=== PATIENT | female | born 1960 | race Two or more races ===

== ENCOUNTER 2019-08-05 13:28 | Inpatient (IN) | payer MEDICARE, MEDICAID ==
[~2019-08-05] VITALS: Ht 165.1 cm; Wt 56.7 kg
[2019-08-05] MEDS ORDERED: OMEGA 3 1,0001 EACH PO (13:33)
[2019-08-05] MEDS ORDERED: MULTIVITAMINS1 EAC2 ORAL (13:33)
[2019-08-05] MEDS ORDERED: LIPITOR20 MG ORAL (13:37)
[2019-08-05] MEDS ORDERED: ZYPREXA5 MG ORAL (13:37)
[2019-08-05] MEDS ORDERED: LEXAPRO10 MG ORAL (13:37)
[2019-08-05] MEDS ORDERED: RISPERDAL2 MG ORAL (13:37)
[2019-08-05] MEDS ORDERED: FAMOTIDINE20 MG ORAL (13:37)
[2019-08-05] MEDS ORDERED: COLACE100 MG ORAL (13:37)
[2019-08-05] MEDS ORDERED: Omnipaque-300 100ml vial INJ PRN (13:45)
--- NOTE | 2019-08-05 14:00 | NUR ---
ED Nurse Note:pt. was BIBA from SNF with coffee ground emesis this morning, pt. is A/Ox3 ambulatory with assist, skin is intact, blood was sent to labs and IV meds and fluids given
[2019-08-05 14:02] VITALS: BP 123/69
[2019-08-05 14:28] LABS: ANION GAP 7 mmol/L (5-15); BLOOD UREA NITROGEN 9 mg/dL (7-18); CALCIUM 9.1 MG/DL (8.5-10.1); CARBON DIOXIDE 30 MMOL/L (21-32); CHLORIDE 104 MMOL/L (98-107); CREATININE 0.6 MG/DL (0.55-1.30); POTASSIUM 3.7 MMOL/L (3.5-5.1); SODIUM 141 MMOL/L (136-145)
[2019-08-05 14:32] LABS: ALANINE AMINOTRANSFERASE 19 U/L (12-78); ALBUMIN 3.6 G/DL (3.4-5.0); ALBUMIN/GLOBULIN RATIO 0.9 (1.0-2.7); ALKALINE PHOSPHATASE 78 U/L (46-116); ASPARTATE AMINO TRANSFERASE 19 U/L (15-37); BILIRUBIN,TOTAL 0.3 MG/DL (0.2-1.0)
[2019-08-05 14:33] LABS: BASOPHILS % (AUTO) 0.5 % (0.0-2.0); EOSINOPHILS % (AUTO) 0.2 % (0.0-3.0); HEMATOCRIT 45.2 % (37.0-47.0); HEMOGLOBIN 14.5 G/DL (12.0-16.0); LYMPHOCYTES % (AUTO) 25.1 % (20.0-45.0); MEAN CORPUSCULAR VOLUME 98 FL (80-99); MONOCYTES % (AUTO) 6.2 % (1.0-10.0); NEUTROPHILS % (AUTO) 67.9 % (45.0-75.0); PLATELET COUNT 347 K/UL (150-450); RED BLOOD COUNT 4.64 M/UL (4.20-5.40); RED CELL DISTRIBUTION WIDTH 12.4 % (11.6-14.8)
--- NOTE | 2019-08-05 14:36 | Diagnostic Imaging Report ---
Procedure: XRAY Chest 1v Reason for study: Chest pain. Comparison films: None. FINDINGS: A single one view chest is obtained. Vascularity is normal. The lung greene are clear bilaterally. Cardiac and mediastinal silhouette are within normal limits. CP angles are sharp. The bony thorax appear unremarkable. IMPRESSION: NO ACUTE CARDIOPULMONARY DISEASE.
--- NOTE | 2019-08-05 14:38 | Emergency Room Report ---
History of Present Illness General Chief Complaint: Gastrointestinal Bleed Source: Patient, EMS Present Illness HPI Patient is set from a long-term facility for allegedly vomiting up coffee grounds this morning. She does admit that she did vomit but denies any abdominal pain or nausea at this time. She is been moving her bowels without difficulty and denies melena, hematochezia. Patient has a history of GERD. She states her stools have been normal color. Patient has a history of COPD. History of schizophrenia and depression. No fevers, chills, sore throat, chest pain, palpitations, diarrhea, dysuria, abdominal pain, shortness of breath, joint pain, rashes, depression, anxiety, visual changes, dizziness, headache. 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 COVID-19 Screening: Negative COVID-19 COVID-19 Testing Source: 06/25 Patient History Past Medical History: see triage record Social History: Denies: smoking, alcohol use, drug use Social History Narrative Born in [place], from [facility] Reviewed Nursing Documentation: PMH: Agreed; PSxH: Agreed Nursing Documentation-PMH Past Medical History: No History, Except For Hx COPD: Yes Hx Gastrointestinal Problems: Yes - GERD History Of Psychiatric Problem: Yes - major depressive disorder, schizoaffective disorder Review of Systems All Other Systems: negative except mentioned in HPI Physical Exam Vital Signs Date Time Temp Pulse Resp B/P (MAP) Pulse Ox O2 Delivery O2 Flow Rate FiO2 08/05/19 13:24 98.8 76 18 123/69 (87) 94 Room Air Sp02 EP Interpretation: reviewed, abnormal - Interpreted as slightly low by me General Appearance: well appearing, no apparent distress, GCS 15, non-toxic Head: normocephalic Eyes: bilateral eye normal inspection, bilateral eye PERRL, bilateral eye EOMI ENT: moist mucus membranes Neck: supple Respiratory: normal inspection Cardiovascular #1: regular rate, rhythm, no edema Cardiovascular #2: 2+ radial (R) Gastrointestinal: normal inspection, normal bowel sounds, non tender, no mass, non-distended, scaphoid Genitourinary: no CVA tenderness Musculoskeletal: back normal, normal range of motion, gait/station normal Neurologic: alert, oriented x3, grossly normal Psychiatric: mood/affect normal Skin: no rash, warm/dry Medical Decision Making Diagnostic Impression: Primary Impression: Upper gastrointestinal bleed ER Course Patient sent in with history of coffee-ground emesis this morning. She denies symptoms at this time. Differential includes GERD, Alana-Hanks tear, gastritis, peptic ulcer disease amongst others. Evaluation with EKG, chest x- ray and labs. Patient is placed on a night monitor and will receive IV hydration and Pepcid. EKG without injury. Chest x-ray suggestive of COPD no infiltrates. Labs significant for normal hemoglobin and hematocrit. CMP and lipase normal. Urinalysis clear. No evidence of any continued vomiting. Patient in no distress and abdomen is benign. However the patient needs to have upper endoscopy urgently as there is a history of significant vomiting of coffee grounds and blood. Patient admitted to the hospital for further observation and evaluation. Laboratory Tests Test 08/05/19 14:00 08/05/19 15:00 White Blood Count 10.0 K/UL (4.8-10.8) Red Blood Count 4.64 M/UL (4.20-5.40) Hemoglobin 14.5 G/DL (12.0-16.0) Hematocrit 45.2 % (37.0-47.0) Mean Corpuscular Volume 98 FL (80-99) Mean Corpuscular Hemoglobin 31.2 PG (27.0-31.0) H Mean Corpuscular Hemoglobin Concent 32.0 G/DL (32.0-36.0) Red Cell Distribution Width 12.4 % (11.6-14.8) Platelet Count 347 K/UL (150-450) Mean Platelet Volume 6.3 FL (6.5-10.1) L Neutrophils (%) (Auto) 67.9 % (45.0-75.0) Lymphocytes (%) (Auto) 25.1 % (20.0-45.0) Monocytes (%) (Auto) 6.2 % (1.0-10.0) Eosinophils (%) (Auto) 0.2 % (0.0-3.0) Basophils (%) (Auto) 0.5 % (0.0-2.0) Prothrombin Time 10.8 SEC (9.30-11.50) Prothrombin Time INR 1.0 (0.9-1.1) Activated Partial Thromboplast Time 29 SEC (23-33) Sodium Level 141 MMOL/L (136-145) Potassium Level 3.7 MMOL/L (3.5-5.1) Chloride Level 104 MMOL/L (98-107) Carbon Dioxide Level 30 MMOL/L (21-32) Anion Gap 7 mmol/L (5-15) Blood Urea Nitrogen 9 mg/dL (7-18) Creatinine 0.6 MG/DL (0.55-1.30) Estimated Glomerular Filtration Rate > 60 mL/min (>60) Glucose Level 96 MG/DL (74-106) Lactic Acid Level 0.90 mmol/L (0.4-2.0) Calcium Level 9.1 MG/DL (8.5-10.1) Total Bilirubin 0.3 MG/DL (0.2-1.0) Aspartate Amino Transferase (AST) 19 U/L (15-37) Alanine Aminotransferase (ALT) 19 U/L (12-78) Alkaline Phosphatase 78 U/L (46-116) Troponin I 0.000 ng/mL (0.000-0.056) Total Protein 7.5 G/DL (6.4-8.2) Albumin 3.6 G/DL (3.4-5.0) Globulin 3.9 g/dL Albumin/Globulin Ratio 0.9 (1.0-2.7) L Lipase 196 U/L (73-393) Urine Color Pale yellow Urine Appearance Clear Urine pH 6.5 (4.5-8.0) Urine Specific [place] 1.005 (1.005-1.035) Urine Protein Negative (NEGATIVE) Urine Glucose (UA) Negative (NEGATIVE) Urine Ketones Negative (NEGATIVE) Urine Blood Negative (NEGATIVE) Urine Nitrite Negative (NEGATIVE) Urine Bilirubin Negative (NEGATIVE) Urine Urobilinogen Normal MG/DL (0.0-1.0) Urine Leukocyte Esterase 1+ (NEGATIVE) H Urine RBC 0-2 /HPF (0 - 2) Urine WBC 0-2 /HPF (0 - 2) Urine Squamous Epithelial Cells Occasional /LPF Urine Bacteria Occasional /HPF (NONE) EKG Diagnostic Results Rate: normal Rhythm: NSR ST Segments: no acute changes Rhythm Strip Diag. Results EP Interpretation: yes Rhythm: NSR, no PVC's, no ectopy Chest X-Ray Diagnostic Results Chest X-Ray Diagnostic Results : Chest X-Ray Ordered: Yes # of Views/Limited/Complete: 1 View Indication: Other EP Interpretation: Yes Interpretation: no consolidation, no effusion, no pneumothorax Impression: No acute disease Electronically Signed by: Electronically signed by Breezy Grimes MD Last Vital Signs Date Time Temp Pulse Resp B/P (MAP) Pulse Ox O2 Delivery O2 Flow Rate FiO2 08/05/19 14:02 98.8 76 18 123/69 96 Room Air Status: unchanged Disposition: ADMITTED INPATIENT Condition: Serious Referrals: Luis Alberto Muñoz DO (PCP) Breezy Grimes MD Aug 05, 2019 14:38
[2019-08-05 15:37] VITALS: BP 125/70
--- NOTE | 2019-08-05 15:49 | NUR ---
ED Nurse Note:called [address] with report given to Xenia RIOS
--- NOTE | 2019-08-05 15:51 | Diagnostic Imaging Report ---
EXAM: CT CT Abdomen Pelvis w/Contrast INDICATION: Reason For Exam: ABD PAIN. Coffee-ground emesis. COMPARISON: None TECHNIQUE: Axial images were obtained through the abdomen pelvis with intravenous contrast. Sagittal and coronal reformats are generated. All CT scans at this facility are performed using dose modulation techniques as appropriate to a performed exam including the following: automated exposure control with adjustment of the mA and/or kV according to patient size. RADIATION DOSE: CTDIvol: 3.7 mGy DLP: 185.9 mGy-cm Dose information generated by the CT scanner is available in PACS. FINDINGS: Mild atelectatic changes noted in the lung bases. The liver and spleen are homogeneous. Gallbladder is without sludge or stone and there is no wall thickening. The pancreas is unremarkable. Adrenals are normal in morphology. There are small cysts bilaterally. Small bowel loops are nondistended. Qcav-ed-gsxasala increased stool lucencies noted in the colon. The appendix is normal. There is no free fluid or free air. No pathologic adenopathy demonstrated. Urinary bladder appears unremarkable. Uterus is midline. No acute bony abnormality seen. IMPRESSION: NO SIGN OF ACUTE DISEASE IN THE ABDOMEN AND PELVIS. MILD TO MODERATE INCREASED STOOL LUCENCIES IN THE COLON. SMALL RENAL CYSTS.
[2019-08-05 16:14] LABS: APPEARANCE,URINE CLEAR; BILIRUBIN, URINE NEGATIVE (NEGATIVE); COLOR,URINE PALE YELLOW; GLUCOSE, URINE (UA) NEGATIVE (NEGATIVE); KETONES,URINE NEGATIVE (NEGATIVE); LEUKOCYTE ESTERASE ,URINE 1+ (NEGATIVE); NITRITE,URINE NEGATIVE (NEGATIVE); PH,URINE 6.5 (4.5-8.0); PROTEIN,URINE NEGATIVE (NEGATIVE); UROBILINOGEN,URINE NORMAL MG/DL (0.0-1.0)
[2019-08-05 16:30] VITALS: BP 124/65
--- NOTE | 2019-08-05 16:30 | NUR ---
NURSE NOTES: Patient arrived on unit via wheelchair. Assisted to bed by staff. Patient is oriented to name and birthday, unable to answer where she is or why she is at the hospital. Skin is c/d/i. Patient oriented to room, call light, and unit. Patient keeps asking to smoke, patient made aware of no smoking policy, reinforcement needed. No c/o abdominal pain, n/v/d. Patient is stable. No visible signs of distress noted. Patient wanders around room and hallway without mask, needs reinforcement to stay in room for safety. All needs met at this time. WIll continue to monitor.
[2019-08-05] MEDS ORDERED: Acetaminophen 500mg (ES) tab ORAL PRN (17:15)
--- NOTE | 2019-08-05 18:00 | NUR ---
NURSE NOTES: Spoke to Dr. Kennedy per Dr. Holley regarding psych meds. New orders to continue psych meds from SNF read back and entered.
--- NOTE | 2019-08-05 18:52 | NUR ---
NURSE NOTES: no n/v/d during shift. No c/o abdominal discomfort. stable.
--- NOTE | 2019-08-05 19:27 | NUR ---
HAND-OFF: Report given to Anders RIOS. Patient is stable.
--- NOTE | 2019-08-05 19:28 | NUR ---
NURSE NOTES: Received pt awake,a&o x4 ,and verbal. pt has no sob,fever,cough and pain. pt is ambulatory. pt is NPO except ice chips and meds. Bed in the lower position,locked and call light within reach. We will keep monitoring the pt.
[2019-08-05 20:00] VITALS: BP 113/67
[2019-08-05] MEDS: TraZODone 50mg tab ORAL SCH (20:42)
[2019-08-06] VITALS: BP 115/59
[2019-08-06 04:00] VITALS: BP 95/56
[2019-08-06 05:54] LABS: EOSINOPHILS % (AUTO) 1.2 % (0.0-3.0); HEMATOCRIT 44.2 % (37.0-47.0); HEMOGLOBIN 13.8 G/DL (12.0-16.0); LYMPHOCYTES % (AUTO) 37.1 % (20.0-45.0); MEAN CORPUSCULAR VOLUME 97 FL (80-99); NEUTROPHILS % (AUTO) 51.7 % (45.0-75.0); PLATELET COUNT 309 K/UL (150-450); RED BLOOD COUNT 4.54 M/UL (4.20-5.40); RED CELL DISTRIBUTION WIDTH 12.6 % (11.6-14.8); WHITE BLOOD COUNT 7.3 K/UL (4.8-10.8)
[2019-08-06 06:03] LABS: ALANINE AMINOTRANSFERASE 13 U/L (12-78); ALBUMIN 3.1 G/DL (3.4-5.0); ALBUMIN/GLOBULIN RATIO 0.9 (1.0-2.7); ALKALINE PHOSPHATASE 68 U/L (46-116); ANION GAP 5 mmol/L (5-15); ASPARTATE AMINO TRANSFERASE 16 U/L (15-37); BILIRUBIN,TOTAL 0.4 MG/DL (0.2-1.0); BLOOD UREA NITROGEN 8 mg/dL (7-18); CALCIUM 8.6 MG/DL (8.5-10.1); CARBON DIOXIDE 29 MMOL/L (21-32); CHLORIDE 107 MMOL/L (98-107); CREATININE 0.7 MG/DL (0.55-1.30); POTASSIUM 3.7 MMOL/L (3.5-5.1); SODIUM 141 MMOL/L (136-145)
--- NOTE | 2019-08-06 07:20 | NUR ---
HAND-OFF: Report given to GABRIEL Wasserman. Addendum: 08/06/19 at 0738 by JACKIE CONSTANTINO RN Discard this note. Wrong Pt
--- NOTE | 2019-08-06 07:30 | NUR ---
HAND-OFF: Report given to GABRIEL Lobato.
--- NOTE | 2019-08-06 07:44 | NUR ---
NURSE NOTES: Received report from GABRIEL Mcnamara. pt awake, A&Ox2 , able to make needs known. No acute distress noeted. Denies any pain and discomfort at this time. Pt is NPO except ice chips and meds. Bed in the lower position,locked and call light within reach. We will keep monitoring the pt.
[2019-08-06 08:00] VITALS: BP 85/47
--- NOTE | 2019-08-06 09:00 | NUR ---
NURSE NOTES: Noted low BP 85/47. Dr. Salmeron aware. Received new orders to start regular diet and NS 1L IV bolus. Order carried out.
[2019-08-06] MEDS: Pantoprazole Inj IVP SCH ×2 (10:22→21:13)
--- NOTE | 2019-08-06 11:30 | NUR ---
NURSE NOTES: BP 95/45 noted. No acute distress noted.
[2019-08-06 12:00] VITALS: BP 95/45
--- NOTE | 2019-08-06 12:21 | NUR ---
CASE MANAGEMENT: INITIAL REVIEW 59 YO F GLEN FROM [facility] CC: GI BLEED PMHx: Schizophrenia, COPD. depression SI:GI BLEED VS T 98.8 HR 76 RR 18 B/P 123/69 SATS 94% ON RA LABS: UA (+LEUKS) IS:ZOSYN IV X1 PEPCID IV X1 NS BOLUS X1 CXR Impression: No acute disease PATIENT ADMITTED TO MED/SURG 08/05/2019 @ 1408 DCP: SNF PLAN OF CARE: EGD W/ BIOPSY INTERQUAL MET
--- NOTE | 2019-08-06 15:05 | General Progress Note ---
Progress Note Progress Note [id number] full consult dictated Digna Walker MD Aug 06, 2019 15:05
[2019-08-06 16:00] VITALS: BP 107/60
--- NOTE | 2019-08-06 19:01 | Cardiology Progress Note ---
Assessment/Plan Assessment/Plan The patient is seen and examined, full consult note is dictated. Objective Last 24 Hour Vital Signs Date Time Temp Pulse Resp B/P (MAP) Pulse Ox O2 Delivery O2 Flow Rate FiO2 08/06/19 16:00 98.6 67 20 107/60 (76) 97 08/06/19 12:00 97.6 66 18 95/45 (62) 95 08/06/19 09:00 Room Air 08/06/19 08:00 97.4 51 20 85/47 (60) 95 08/06/19 04:00 98.2 60 17 95/56 (69) 96 08/06/19 00:00 98.0 57 19 115/59 (77) 97 08/05/19 21:00 Room Air 08/05/19 20:00 98.1 67 19 113/67 (82) 96 Laboratory Tests Test 08/06/19 05:00 White Blood Count 7.3 K/UL (4.8-10.8) Red Blood Count 4.54 M/UL (4.20-5.40) Hemoglobin 13.8 G/DL (12.0-16.0) Hematocrit 44.2 % (37.0-47.0) Mean Corpuscular Volume 97 FL (80-99) Mean Corpuscular Hemoglobin 30.4 PG (27.0-31.0) Mean Corpuscular Hemoglobin Concent 31.3 G/DL (32.0-36.0) L Red Cell Distribution Width 12.6 % (11.6-14.8) Platelet Count 309 K/UL (150-450) Mean Platelet Volume 6.9 FL (6.5-10.1) Neutrophils (%) (Auto) 51.7 % (45.0-75.0) Lymphocytes (%) (Auto) 37.1 % (20.0-45.0) Monocytes (%) (Auto) 9.0 % (1.0-10.0) Eosinophils (%) (Auto) 1.2 % (0.0-3.0) Basophils (%) (Auto) 1.0 % (0.0-2.0) Sodium Level 141 MMOL/L (136-145) Potassium Level 3.7 MMOL/L (3.5-5.1) Chloride Level 107 MMOL/L (98-107) Carbon Dioxide Level 29 MMOL/L (21-32) Anion Gap 5 mmol/L (5-15) Blood Urea Nitrogen 8 mg/dL (7-18) Creatinine 0.7 MG/DL (0.55-1.30) Estimat Glomerular Filtration Rate > 60 mL/min (>60) Glucose Level 86 MG/DL (74-106) Calcium Level 8.6 MG/DL (8.5-10.1) Total Bilirubin 0.4 MG/DL (0.2-1.0) Aspartate Amino Transf (AST/SGOT) 16 U/L (15-37) Alanine Aminotransferase (ALT/SGPT) 13 U/L (12-78) Alkaline Phosphatase 68 U/L (46-116) Total Protein 6.6 G/DL (6.4-8.2) Albumin 3.1 G/DL (3.4-5.0) L Globulin 3.5 g/dL Albumin/Globulin Ratio 0.9 (1.0-2.7) L Abel Mathews MD Aug 06, 2019 19:01
--- NOTE | 2019-08-06 19:15 | Consultation ---
DATE OF CONSULTATION: 08/06/2019 CONSULTING PHYSICIAN: Vernon Salmeron MD. REFERRING PHYSICIAN: Luis Alberto Muñoz DO. CHIEF COMPLAINT: Coffee-ground emesis. HISTORY OF PRESENT ILLNESS: The patient is a very poor historian, shelter patient, has a psychiatric disorder including schizophrenia, who was admitted to the hospital with coffee-ground emesis. Talking to the patient at the bedside, she denies everything. She is a very poor historian and unreliable. PAST MEDICAL HISTORY: 1. History of COPD. 2. Schizophrenia. 3. Depression. PAST SURGICAL HISTORY: Unknown. ALLERGIES: No known drug allergies. MEDICATIONS: Please see medication reconciliation list. FAMILY HISTORY: Noncontributory. SOCIAL HISTORY: Currently lives in a shelter. No recent history of tobacco, alcohol, or IV drug abuse. PHYSICAL EXAMINATION: VITAL SIGNS: Temperature 98, pulse 60, respirations 17, blood pressure is 95/56. HEENT: Normocephalic and atraumatic. Sclerae anicteric. NECK: Supple. No evidence of obvious lymphadenopathy. CARDIOVASCULAR: Regular rhythm. Plus S1, S2. LUNGS: Clear to auscultation bilaterally. ABDOMEN: Positive bowel sounds. Soft and nontender. No rebound. No guarding. No peritoneal sign. EXTREMITIES: No cyanosis. No clubbing. No edema. LABORATORY DATA: White count 7.3, hemoglobin 13, hematocrit 44, platelets of 309,000. Chem-7, sodium 141, potassium 3.7, BUN 8, creatinine 0.7. Liver function grossly normal. Imaging studies, the patient had CT of the abdomen and pelvis done in the ER and showed no sign of acute disease in the abdomen or pelvis, [id number]-ruwssbtt increased stool in the colon, and a small renal cyst. ASSESSMENT AND PLAN: This is a 59-year-old female with coffee-ground emesis. Negative CT. She has stable hemoglobin and hematocrit. No recurrent vomiting since admission. The patient will need an endoscopy and colonoscopy, but the patient I doubt if she is going to be taking the prep for colonoscopy. Plan to start her on a diet today, give her a liter bolus given hypotension, and put her on Protonix. Plan to do an endoscopy on Thursday if consent is obtained. I want to thank, Dr. Luis Alberto Muñoz, for this kind referral. Vernon Ivan Salmeron DR: [place] JOB#: [id number] CC: Luis Alberto Muñoz DO
--- NOTE | 2019-08-06 19:25 | NUR ---
NURSE NOTES: Received report from Corrina RIOS, pt. is in bed, awake, alert and verbally responsive, with confusion. Denies any pain at this time. Will continue to monitor.
[2019-08-06 20:00] VITALS: BP 109/61
--- NOTE | 2019-08-06 20:05 | NUR ---
HAND-OFF: Report given to GABRIEL Green.
[2019-08-06] MEDS: TraZODone 50mg tab ORAL SCH (21:13)
--- NOTE | 2019-08-06 21:15 | History and Physical Report ---
DATE OF ADMISSION: 08/05/[address] Luis Alberto Muñoz. HISTORY OF PRESENT ILLNESS: This is Dr. Luis Alberto Muñoz's patient. Patient admitted for upper GI bleed. Patient also came in from the facility with vomiting coffee-grounds emesis. Denies abdominal pain. Denies shortness of breath. Denies cough. Denies fever or chills. The patient does have history of. PAST MEDICAL HISTORY: Psychosis, depression, COPD, GERD, hyperlipidemia, constipation. PAST SURGICAL HISTORY: Denies history of surgeries. ALLERGIES: None. FAMILY HISTORY: Noncontributory. SOCIAL HISTORY: Denies history of smoking. No history alcohol or illicit drugs. Denies history of drug abuse. MEDICATIONS: She takes Lexapro, docusate, atorvastatin, olanzapine, and risperidone. REVIEW OF SYSTEMS: HEENT: Denies headaches. PULMONARY: Denies shortness of breath. Denies cough. CARDIOVASCULAR: Denies chest pain. GASTROINTESTINAL: Does have vomiting. Denies abdominal pain. EXTREMITIES: Denies pain. CENTRAL NERVOUS SYSTEM: Denies change in speech pattern. PHYSICAL EXAMINATION: VITAL SIGNS: Temperature is 98.1, pulse is 67, blood pressure is 113/67. HEENT: PERRLA. CHEST: Clear to auscultation. CARDIOVASCULAR: Bradycardic. No murmur. GASTROINTESTINAL: Soft. Positive bowel sounds. No epigastric tenderness. No rebound. EXTREMITIES: No edema. She is able to move all extremities. Dorsalis pedis pulses are present. LABORATORY DATA: WBC of 10, hemoglobin of 14.5, platelets of 347. Sodium 141, potassium 3.7, BUN of 9, creatinine 0.6, glucose of 96. ASSESSMENT AND PLAN: GI bleed, bradycardia, coffee-grounds emesis, and psychosis. I have asked Dr. Ioana Kennedy, Dr. Walker, Dr. Salmeron, and Dr. Mathews to see the patient to help with the above-mentioned abnormalities and symptoms of abnormal vitals as well as abnormal laboratories. GI workup per Dr. Salmeron. Jose C Holley M.D. DR: MISTI JOB#: [id number] CC:
--- NOTE | 2019-08-06 22:55 | NUR ---
EKG result = sinus bradycardia. Called and relayed result to Dr. Mathews, with no new orders.
[2019-08-07] VITALS: BP 129/72
--- NOTE | 2019-08-07 00:45 | NUR ---
NURSE NOTES: Pt. requested to have her IV fluids be disconnected. Explained to pt. that she needs it because her BP is low but she threatens to pull out her iv line. Checked pt.'s BP = 112/65. Disconnected iv as per pt.'s request. Will encourage to have it connected again.
--- NOTE | 2019-08-07 01:30 | Consultation ---
DATE OF CONSULTATION: 08/06/2019 NEPHROLOGY CONSULTATION REFERRING PHYSICIAN: Jose C Holley M.D., covering for Dr. Luis Alberto Muñoz. REASON FOR CONSULTATION: Management of IV fluid and electrolyte imbalance. HISTORY OF PRESENT ILLNESS: The patient is a 59-year-old female with past medical history significant for history of COPD, hypertension, schizophrenia, and depression, who was transferred from care home to [facility] for evaluation of coffee-ground emesis. Upon admission, the patient did not have nausea or vomiting that subsided. She denies having any abdominal pain. Denied any melena, hematemesis, or hematochezia. The patient was called for management of electrolyte and IV fluid management. ALLERGIES: No known drug allergies. PAST MEDICAL HISTORY: 1. History of COPD. 2. History of schizophrenia. 3. History of depression. PAST SURGICAL HISTORY: None. SOCIAL HISTORY: There is no history of tobacco, alcohol, or drug use. She is a care home resident. History of smoking. FAMILY HISTORY: Noncontributory. MEDICATIONS: List was reviewed. REVIEW OF SYSTEMS: GENERAL: She complained of generalized weakness. No fever. No chills. No night sweats. HEAD AND NECK: Denies any dysphagia, odynophagia, blurry vision, headache, or neck stiffness. PULMONARY: Denies any shortness of breath, cough, or sputum. CARDIOVASCULAR: Denies any chest pain or palpitation. GASTROINTESTINAL: Complaining of nausea and vomiting on admission, currently the patient is asymptomatic. GENITOURINARY: Denies any dysuria, frequency, or hematuria. MUSCULOSKELETAL: Denies any weakness or numbness. PHYSICAL EXAMINATION: VITAL SIGNS: The patient had temperature of 97, blood pressure of 95/45, pulse rate of 66. HEAD AND NECK: No JVP. No LAD. No thyromegaly. Extraocular movement intact. Pupils are reactive to light and accommodation. LUNGS: Clear to auscultation. CARDIAC: Regular rate and rhythm. S1-S2. No murmur. No rub. ABDOMEN: Soft, nontender, and nondistended. No organomegaly. EXTREMITIES: No edema. No clubbing. No cyanosis. LABORATORY DATA: Laboratory value on admission revealed WBC count of 10, hemoglobin of 14, hematocrit of 42, platelet count of 347. Chemistry reveals sodium 141, potassium 3.7, 107 chloride, 29 bicarb, BUN of 8, creatinine of 0.7. Albumin 3.1. AST and ALT within normal limits. Coag normal. UA revealed specific gravity of 1.005, leukocyte esterase positive, WBC of 0 to 2, RBC 0 to 2. ASSESSMENT: 1. Dehydration. 2. Possible GI bleeding. 3. Hypotension. PLAN: Plan for the patient to start the patient on IV fluid. I would start the patient on normal saline at 50 mL/hour blood pressure. I would check the random urine protein-creatinine ratio to calculate the proteinuria, avoid any NSAID and nephrotoxics, to place the electrolytes as needed. I would like to thank Dr. Jose C Holley for allowing to participate in the care of this patient. Digna Walker M.D. DR: JORDI JOB#: [id number] CC:
[2019-08-07 04:00] VITALS: BP 128/59
[2019-08-07] MEDS: LORazepam 1mg tab ORAL PRN ×2 (05:59→15:58)
--- NOTE | 2019-08-07 06:10 | NUR ---
NURSE NOTES: Pt. still refused to have her iv connected, refused x 3. Rights respected.
[2019-08-07 07:00] LABS: BASOPHILS % (AUTO) 0.8 % (0.0-2.0); EOSINOPHILS % (AUTO) 0.7 % (0.0-3.0); HEMATOCRIT 43.1 % (37.0-47.0); HEMOGLOBIN 13.6 G/DL (12.0-16.0); LYMPHOCYTES % (AUTO) 33.8 % (20.0-45.0); MEAN CORPUSCULAR VOLUME 97 FL (80-99); MONOCYTES % (AUTO) 8.5 % (1.0-10.0); NEUTROPHILS % (AUTO) 56.2 % (45.0-75.0); PLATELET COUNT 304 K/UL (150-450); RED BLOOD COUNT 4.46 M/UL (4.20-5.40); RED CELL DISTRIBUTION WIDTH 12.3 % (11.6-14.8); WHITE BLOOD COUNT 7.7 K/UL (4.8-10.8)
[2019-08-07 07:07] LABS: ALANINE AMINOTRANSFERASE 17 U/L (12-78); ALBUMIN 3.1 G/DL (3.4-5.0); ALBUMIN/GLOBULIN RATIO 0.9 (1.0-2.7); ALKALINE PHOSPHATASE 67 U/L (46-116); ANION GAP 7 mmol/L (5-15); ASPARTATE AMINO TRANSFERASE 16 U/L (15-37); BILIRUBIN,TOTAL 0.4 MG/DL (0.2-1.0); BLOOD UREA NITROGEN 8 mg/dL (7-18); CALCIUM 8.5 MG/DL (8.5-10.1); CARBON DIOXIDE 27 MMOL/L (21-32); CHLORIDE 107 MMOL/L (98-107); CREATININE 0.7 MG/DL (0.55-1.30); POTASSIUM 3.6 MMOL/L (3.5-5.1); SODIUM 141 MMOL/L (136-145)
--- NOTE | 2019-08-07 07:09 | NUR ---
NURSE NOTES: Report given to Corrina RIOS.
--- NOTE | 2019-08-07 07:45 | NUR ---
NURSE NOTES: Received report from GABRIEL Green. Pt awake and standing in the room saying that she wants to go to [place]. Pt alert and orientedx2, confused. No acute distress noted. Denies any pain or discomfort at this time. Pt does not remember last BM. IV intact and patent. Bed in low position and locked. Call light within reach. Will continue to monitor.
--- NOTE | 2019-08-07 07:58 | General Progress Note ---
Assessment/Plan Assessment/Plan: 1. History of COPD. 2. Schizophrenia. 3. Depression 4, coffee colored emesis stable H&H on ppi plan EGD in am Subjective ROS Limited/Unobtainable: Yes Allergies: Coded Allergies: No Known Allergies (Unverified , 08/05/19) Objective Last 24 Hour Vital Signs Date Time Temp Pulse Resp B/P (MAP) Pulse Ox O2 Delivery O2 Flow Rate FiO2 08/07/19 04:00 98.0 61 18 128/59 (82) 94 08/07/19 00:42 97.7 08/07/19 00:00 97.7 58 19 129/72 (91) 94 08/06/19 21:00 Room Air 08/06/19 20:00 98.2 60 18 109/61 (77) 94 08/06/19 16:00 98.6 67 20 107/60 (76) 97 08/06/19 12:00 97.6 66 18 95/45 (62) 95 08/06/19 09:00 Room Air 08/06/19 08:00 97.4 51 20 85/47 (60) 95 Intake and Output 08/06/19 08/07/19 19:00 07:00 Intake Total 50 ml 285 ml Balance 50 ml 285 ml Intake IV Total 50 ml 285 ml Laboratory Tests 08/07/19 06:25: White Blood Count 7.7, Red Blood Count 4.46, Hemoglobin 13.6, Hematocrit 43.1, Mean Corpuscular Volume 97, Mean Corpuscular Hemoglobin 30.4, Mean Corpuscular Hemoglobin Concent 31.5L, Red Cell Distribution Width 12.3, Platelet Count 304, Mean Platelet Volume 6.9, Neutrophils (%) (Auto) 56.2, Lymphocytes (%) (Auto) 33.8, Monocytes (%) (Auto) 8.5, Eosinophils (%) (Auto) 0.7, Basophils (%) (Auto ) 0.8, Sodium Level 141, Potassium Level 3.6, Chloride Level 107, Carbon Dioxide Level 27, Anion Gap 7, Blood Urea Nitrogen 8, Creatinine 0.7, Estimat Glomerular Filtration Rate > 60, Glucose Level 91, Calcium Level 8.5, Total Bilirubin 0.4, Aspartate Amino Transf (AST/SGOT) 16, Alanine Aminotransferase ( ALT/SGPT) 17, Alkaline Phosphatase 67, Total Protein 6.6, Albumin 3.1L, Globulin 3.5, Albumin/Globulin Ratio 0.9L Height (Feet): 5 Height (Inches): 4.00 Weight (Pounds): 125 General Appearance: alert EENT: normal ENT inspection Neck: supple Cardiovascular: normal rate Respiratory/Chest: decreased breath sounds Abdomen: normal bowel sounds, non tender, soft Extremities: non-tender Vernon Salmeron MD Aug 07, 2019 07:58
[2019-08-07 08:00] VITALS: BP 100/60
[2019-08-07] MEDS: Pantoprazole Inj IVP SCH ×2 (09:21→20:24)
[2019-08-07 12:00] VITALS: BP 101/62
--- NOTE | 2019-08-07 12:15 | Progress Note ---
DATE: 08/07/2019 SUBJECTIVE: This is a 59-year-old female patient. She states she came to the hospital secondary to upper GI bleed, but she has also history of paranoid schizophrenia and mood lability. That is why, she requires daily psychiatric consultation has been requested by attending physician. MENTAL STATUS EXAMINATION: This is a 59-year-old female. Appearance is disheveled. Attitude, irritable and agitated. Affect, guarded and restricted. Intellect poor. Mood, depressed and anxious. Motor activity, psychomotor agitation. Attention span is poor. Orientation x2. Speech is low volume, slurred. Thought process, disorganized and illogical. Insight and judgment is poor. DIAGNOSIS: Paranoid schizophrenia with acute exacerbation. PLAN: Treat this patient with a medication regimen of Risperdal 4 mg twice a day, trazodone 50 mg at bedtime, Zyprexa 5 mg twice a day, Ativan 1 every 6 hours p.r.n. anxiety and agitation, Lexapro 10 mg daily. A 20 minutes of cognitive behavioral therapy to help her identify her automatic negative thoughts and help her convert her negative thoughts to more positive thoughts to reduce depression, anxiety, and suicidality. Chart reviewed. Discussed with staff. Seen and assessed in her room. Ioana Kennedy M.D. DR: CHUYITA JOB#: [id number] CC:
[2019-08-07 16:00] VITALS: BP 95/60
--- NOTE | 2019-08-07 19:39 | NUR ---
HAND-OFF: Report given to GABRIEL Ko.
[2019-08-07 20:00] VITALS: BP 119/64
[2019-08-07] MEDS: TraZODone 50mg tab ORAL SCH (20:24)
--- NOTE | 2019-08-07 21:00 | NUR ---
NURSE NOTES: IV access d/c per patient. Reinserted new IV on right forearm. Patient tolerated well.
--- NOTE | 2019-08-07 21:05 | General Progress Note ---
Assessment/Plan Problem List: (1) Upper gastrointestinal bleed ICD Codes: K92.2 - Gastrointestinal hemorrhage, unspecified SNOMED: [id number] Status: progressing Assessment/Plan: afebrile nac upper gi bleed check h/h no vomitting today reviewed chart and vitals Subjective ROS Limited/Unobtainable: Yes Allergies: Coded Allergies: No Known Allergies (Unverified , 08/05/19) Objective Last 24 Hour Vital Signs Date Time Temp Pulse Resp B/P (MAP) Pulse Ox O2 Delivery O2 Flow Rate FiO2 08/07/19 16:00 97.6 67 20 95/60 (72) 96 08/07/19 12:00 97.8 74 20 101/62 (75) 97 08/07/19 09:00 Room Air 08/07/19 08:00 97.3 84 18 100/60 (73) 96 08/07/19 04:00 98.0 61 18 128/59 (82) 94 08/07/19 00:42 97.7 08/07/19 00:00 97.7 58 19 129/72 (91) 94 Intake and Output 08/06/19 08/07/19 19:00 07:00 Intake Total 50 ml 335 ml Balance 50 ml 335 ml Intake IV Total 50 ml 335 ml Laboratory Tests 08/07/19 06:25: White Blood Count 7.7, Red Blood Count 4.46, Hemoglobin 13.6, Hematocrit 43.1, Mean Corpuscular Volume 97, Mean Corpuscular Hemoglobin 30.4, Mean Corpuscular Hemoglobin Concent 31.5L, Red Cell Distribution Width 12.3, Platelet Count 304, Mean Platelet Volume 6.9, Neutrophils (%) (Auto) 56.2, Lymphocytes (%) (Auto) 33.8, Monocytes (%) (Auto) 8.5, Eosinophils (%) (Auto) 0.7, Basophils (%) (Auto ) 0.8, Sodium Level 141, Potassium Level 3.6, Chloride Level 107, Carbon Dioxide Level 27, Anion Gap 7, Blood Urea Nitrogen 8, Creatinine 0.7, Estimat Glomerular Filtration Rate > 60, Glucose Level 91, Calcium Level 8.5, Total Bilirubin 0.4, Aspartate Amino Transf (AST/SGOT) 16, Alanine Aminotransferase ( ALT/SGPT) 17, Alkaline Phosphatase 67, Total Protein 6.6, Albumin 3.1L, Globulin 3.5, Albumin/Globulin Ratio 0.9L Height (Feet): 5 Height (Inches): 4.00 Weight (Pounds): 125 Jose C Holley MD Aug 07, 2019 21:05
--- NOTE | 2019-08-07 21:45 | Consultation ---
DATE OF CONSULTATION: 08/06/2019 CARDIOLOGY CONSULTATION CONSULTING PHYSICIAN: Abel Mathews MD. REFERRING PHYSICIAN: Jose C Holley MD. REASON FOR CONSULTATION: Hemodynamic management in a patient upper GI bleed. HISTORY OF PRESENT ILLNESS: Patient is a very unfortunate 59-year-old female, resident of a care home facility, who was brought in for management of coffee-grounds emesis. The patient has history of schizophrenia. The patient is a poor historian. At the time of my evaluation, she was alert and orientated and denied any chest pain or shortness of breath. PAST MEDICAL HISTORY: Consistent with: 1. GERD. 2. Major depressive disorder. 3. Schizoaffective disorder. 4. COPD. PAST SURGICAL HISTORY: None. SOCIAL HISTORY: Born in [place]. Resides in [facility]. Denies any tobacco, alcohol, or illicit drug use. REVIEW OF SYSTEMS: HEENT: Denies any headache, diplopia, or blurred vision. CONSTITUTIONAL: Denies any fever, chills, night sweats, or weight loss. CARDIOVASCULAR: Denies any chest pain, shortness breath, PND, orthopnea, or leg swelling. PULMONARY: Denies any cough, hemoptysis, or wheezing. GASTROINTESTINAL: Positive for coffee-grounds emesis, but she denies at this time. Denies any diarrhea, constipation, or melanotic stool. GENITOURINARY: Denies any hematuria, dysuria, or incontinence. NEUROLOGIC: Denies any motor dysfunction, sensory deficit, or altered speech. LIST OF MEDICATIONS: Lipitor 20 mg p.o. at bedtime, Colace 250 mg at bedtime, Lexapro 10 mg p.o. daily, famotidine 20 mg at bedtime, multivitamin 1 tablet daily, Zyprexa 5 mg twice daily, omega-3 ethyl alan 1000 mg 2 capsules daily, and Risperdal 4 mg p.o. twice daily. ALLERGIES: No known drug allergies. PHYSICAL EXAMINATION: VITAL SIGNS: Blood pressure was 123/69 mmHg, pulse of 76, respirations 18, O2 saturation was 94% on room air, and temperature 98.8 degrees Fahrenheit. GENERAL: Patient is a very unfortunate 59-year-old lady, in no apparent respiratory distress. Alert and oriented x4. HEENT: Atraumatic and normocephalic. Anicteric. Pupils are equal, round, and reactive to light and accommodation. Extraocular muscles intact. NECK: JVP less than 5 cm. No carotid bruit. Carotid upstrokes 2+ bilaterally. CARDIOVASCULAR: Normal S1, S2. Regular rate and rhythm. No murmurs, gallops, or rubs. PMI is at fourth intercostal space in the midclavicular line. LUNGS: Clear to auscultation bilaterally. ABDOMEN: Soft, nontender, and nondistended. No hepatosplenomegaly. Positive bowel sounds. EXTREMITIES: No evidence of edema, clubbing, or cyanosis. LABORATORY FINDINGS: Sodium is 141, potassium 3.7, chloride 104, bicarbonate 30, BUN 9, creatinine 0.6, glucose 96, calcium 9.1. Troponin I is 0. WBC 10.0, hemoglobin of 14.5, hematocrit of 45.2, and platelet count is 347. INR is 1.0. Chest x-ray showed no acute cardiopulmonary disease. A CT of abdomen and pelvis showed no signs of acute disease in the abdomen and pelvis, mild to moderate stool in the colon, and small renal cyst. A 12-lead electrocardiogram, sinus rhythm with no acute ST and T-wave abnormalities. ASSESSMENT AND PLAN: Patient is a very unfortunate 59-year-old female, seen in Cardiology consultation. 1. Hypotension. The patient upon arrival to the floor had dropped blood pressure to 85/47 mmHg at 8 o'clock. The patient requires to be on normal saline currently at 50 mL/hour. We will continue watching CBC as she had hematochezia. GI consultation for possible EGD. 2. History of schizophrenia. 3. History of major depression. 4. History of COPD. 5. History of GERD. 6. Hypoalbuminemia, possible mild malnutrition. I would like to thank for the courtesy of this consultation. Abel Mathews M.D. DR: KIRILL JOB#: [id number] CC:
[2019-08-08] VITALS (9 sets, daily range): BP systolic 103–125; BP diastolic 57–71
[2019-08-08 07:05] LABS: BASOPHILS % (AUTO) 0.8 % (0.0-2.0); HEMATOCRIT 42.8 % (37.0-47.0); HEMOGLOBIN 13.4 G/DL (12.0-16.0); LYMPHOCYTES % (AUTO) 32.3 % (20.0-45.0); MEAN CORPUSCULAR VOLUME 98 FL (80-99); MONOCYTES % (AUTO) 8.8 % (1.0-10.0); NEUTROPHILS % (AUTO) 57.1 % (45.0-75.0); PLATELET COUNT 281 K/UL (150-450); RED BLOOD COUNT 4.38 M/UL (4.20-5.40); RED CELL DISTRIBUTION WIDTH 12.5 % (11.6-14.8)
[2019-08-08 07:26] LABS: ANION GAP 8 mmol/L (5-15); BLOOD UREA NITROGEN 13 mg/dL (7-18); CALCIUM 8.6 MG/DL (8.5-10.1); CARBON DIOXIDE 28 MMOL/L (21-32); CHLORIDE 109 MMOL/L (98-107); CREATININE 0.7 MG/DL (0.55-1.30); POTASSIUM 3.9 MMOL/L (3.5-5.1); SODIUM 144 MMOL/L (136-145)
--- NOTE | 2019-08-08 07:30 | NUR ---
NURSE NOTES: Patient is in bed awake and able to follow simple commands. Stable. Denies pain or SOB. Breathing is even and unlabored. no visible signs of distress noted at this time. Patient instructed to use call light for assistance, verbalized understanding. Patient is in bed in locked and lowest position with call light within reach. All safety measures provided. Will continue to monitor.
--- NOTE | 2019-08-08 07:37 | NUR ---
HAND-OFF: Report given to GABRIEL Mcfadden. Rapid covid swab sent to lab
[2019-08-08] MEDS: Pantoprazole Inj IVP SCH ×2 (08:09→20:49)
--- NOTE | 2019-08-08 09:11 | NUR ---
NURSE NOTES: Patient repeatedly asks staff to smoke. Reinforcement needed.
--- NOTE | 2019-08-08 09:27 | Pre-Procedure Note/Attestation ---
Pre-Procedure Note/Attestation Complete Prior to Procedure Planned Procedure: not applicable Procedure Narrative: egd Indications for Procedure Pre-Operative Diagnosis: gib Attestation I attest that I discussed the nature of the procedure; its benefits; risks and complications; and alternatives (and the risks and benefits of such alternatives ), prior to the procedure, with the patient (or the patient's legal sales representative trainee). I attest that, if there was a reasonable possibility of needing a blood transfusion, the patient (or the patient's legal sales representative trainee) was given the [facility] standardized written summary, pursuant to the Ambrocio Kelly Blood Safety Act ([place] Health and Safety Code # 1645, as amended). I attest that I re-evaluated the patient just prior to the surgery and that there has been no change in the patient's H&P, except as documented below: Vernon Salmeron MD Aug 08, 2019 09:27
[2019-08-08] MEDS ORDERED: Midazolam 2mg/2ml Inj IVP PRN (09:30)
[2019-08-08] MEDS ORDERED: DiphenhydrAMINE 50mg/ml Inj IVP PRN (09:30)
[2019-08-08] MEDS ORDERED: Lidocaine 1% MPF 10mg/ml 5ml ONE (09:30)
[2019-08-08] MEDS ORDERED: Atropine Inj 1mg/10ml Syr IV PRN (09:30)
[2019-08-08] MEDS ORDERED: fentaNYL 100 mcg/2 mL IV PRN (09:30)
--- NOTE | 2019-08-08 09:30 | NUR ---
NURSE NOTES: Patient taken to GI lab.
--- NOTE | 2019-08-08 09:31 | Anethesia Preoperative Eval ---
Anesthesia Pre-op PMH/ROS General Date of Evaluation: Aug 08, 2019 Time of Evaluation: 09:27 Anesthesiologist: cory ASA Score: ASA 3 Mallampati Score Class I : Soft palate, uvula, fauces, pillars visible Class II: Soft palate, uvula, fauces visible Class III: Soft palate, base of uvula visible Class IV: Only hard plate visible Mallampati Classification: Class II Surgeon: dre Diagnosis: gi bleed Surgical Procedure: egd w/ bx Anesthesia History: none Social History: current smoker Family History: no anesthesia problems Allergies: Coded Allergies: No Known Allergies (Unverified , 08/05/19) Medications: see eMAR Patient NPO?: Yes Past Medical History Pulmonary: Reports: COPD Gastrointestinal/Genitourinary: Reports: GERD Neurologic/Psychiatric: Reports: dementia - schizophrenia, depression/anxiety Musculoskeletal/Integumentary: Reports: other - abnormal gait Anesthesia Pre-op Phys. Exam Physician Exam Last Vital Signs Date Time Temp Pulse Resp B/P (MAP) Pulse Ox O2 Delivery O2 Flow Rate FiO2 08/08/19 08:28 Room Air 08/08/19 08:00 98.1 71 21 114/68 (83) 97 Constitutional: NAD Neurologic: CN 2-12 intact Cardiovascular: RRR Respiratory: CTA Gastrointestinal: S/NT/ND Airway Exam Mallampati Score: Class II MO: limited Neck: flexible TMD: 2fb ROM: limited Anesthesia Pre-op A/P Labs COVID-19 negative Microbiology Date/Time Source Procedure Growth Status 08/08/19 07:30 Nasopharynx SARS-CoV-2 RdRp Gene Assay - Final Complete Hematology Test 08/08/19 05:35 White Blood Count 8.0 K/UL (4.8-10.8) Red Blood Count 4.38 M/UL (4.20-5.40) Hemoglobin 13.4 G/DL (12.0-16.0) Hematocrit 42.8 % (37.0-47.0) Mean Corpuscular Volume 98 FL (80-99) Mean Corpuscular Hemoglobin 30.7 PG (27.0-31.0) Mean Corpuscular Hemoglobin Concent 31.4 G/DL (32.0-36.0) L Red Cell Distribution Width 12.5 % (11.6-14.8) Platelet Count 281 K/UL (150-450) Mean Platelet Volume 7.6 FL (6.5-10.1) Neutrophils (%) (Auto) 57.1 % (45.0-75.0) Lymphocytes (%) (Auto) 32.3 % (20.0-45.0) Monocytes (%) (Auto) 8.8 % (1.0-10.0) Eosinophils (%) (Auto) 1.0 % (0.0-3.0) Basophils (%) (Auto) 0.8 % (0.0-2.0) Chemistry Test 08/08/19 05:35 Sodium Level 144 MMOL/L (136-145) Potassium Level 3.9 MMOL/L (3.5-5.1) Chloride Level 109 MMOL/L (98-107) H Carbon Dioxide Level 28 MMOL/L (21-32) Anion Gap 8 mmol/L (5-15) Blood Urea Nitrogen 13 mg/dL (7-18) Creatinine 0.7 MG/DL (0.55-1.30) Estimat Glomerular Filtration Rate > 60 mL/min (>60) Glucose Level 91 MG/DL (74-106) Calcium Level 8.6 MG/DL (8.5-10.1) Risk Assessment & Plan Assessment: asa3 Plan: mac Status Change Before Surgery: No Pre-Antibiotics Drug: Delmi Monroe MD Aug 08, 2019 09:31
[2019-08-08] MEDS ORDERED: NS 500ML IVPB ONE (09:45)
--- NOTE | 2019-08-08 09:45 | Progress Note ---
DATE: 08/08/2019 SUBJECTIVE: This is a 59-year-old female with GI bleeding. She is confused and disorganized, has got altered mental status, decline in cognition below her baseline and mood lability. That is why, she does require inpatient treatment at this time. She has got feelings of helplessness, hopelessness, low energy, poor appetite, and loss of interest in activity. MENTAL STATUS EXAMINATION: This is a 59-year-old female patient. Appearance is disheveled. Attitude, irritable and agitated. Affect, guarded and restricted. Intellect, poor. Mood, depressed and anxious. Motor activity, psychomotor agitation. Insight and judgment is poor. DIAGNOSIS: Major depressive disorder, severe, recurrent with psychotic features; rule out paranoid schizophrenia. PLAN: Continue treatment with antipsychotic medications. Provide her with 20 minutes of cognitive behavioral therapy to help her identify automatic negative thoughts and help her convert those negative thoughts to more positive to reduce depression, anxiety, and suicidality. Chart reviewed. Discussed with staff. Seen and assessed at bedside. Ioana Kennedy M.D. DR: JENIFER JOB#: [id number] CC:
--- NOTE | 2019-08-08 09:56 | Endoscopy Procedure Note ---
Endoscopy Procedure Note General Indication for Procedure: gib Procedures Performed: EGD Operative Findings/Diagnosis: gastritis Specimen: yes Pt Tolerated Procedure Well: Yes Estimated Blood Loss: none Anesthesia Anesthesiologist: brian Anesthesia: MAC Inserted Devices Implant(s) used?: No GI Core Measures 50 yrs or older w/o bx or poly: Not Applicable 10yrs. F/U recommended: Not Applicable Vernon Salmeron MD Aug 08, 2019 09:56
--- NOTE | 2019-08-08 10:26 | Immediate Post-Op Evaluation ---
Immediate Post-Op Evalulation Immediate Post-Op Evalulation Procedure: egd w/bx Date of Evaluation: Aug 08, 2019 Time of Evaluation: 10:17 IV Fluids: 150ml 0.9ns Blood Products: none Estimated Blood Loss: negligible Blood Pressure Systolic: 104 Blood Pressure Diastolic: 65 Pulse Rate: 57 Respiratory Rate: 18 O2 Sat by Pulse Oximetry: 100 Temperature (Fahrenheit): 98.4 Pain Score (1-10): 0 Nausea: No Vomiting: No Complications none Patient Status: awake, reacts, patent Hydration Status: adequate Drug: Delmi Monroe MD Aug 08, 2019 10:26
--- NOTE | 2019-08-08 10:27 | 48 Hour Post Anesthesia Eval ---
Post Anesthesia Evaluation Procedure: egd w/bx Date of Evaluation: Aug 08, 2019 Time of Evaluation: 10:19 Blood Pressure Systolic: 125 0: 69 Pulse Rate: 57 Respiratory Rate: 18 Temperature (Fahrenheit): 98.4 O2 Sat by Pulse Oximetry: 100 Airway: patent Nausea: No Vomiting: No Pain Intensity: 0 Hydration Status: adequate Cardiopulmonary Status: stable Mental Status/LOC: patient returned to baseline Post-Anesthesia Complications: none Follow-up care needed: N/A Delmi Sheffield MD Aug 08, 2019 10:27
--- NOTE | 2019-08-08 10:47 | NUR ---
NURSE NOTES: Patient back on unit. Assisted back to bed. VSS. Stable
--- NOTE | 2019-08-08 12:05 | NUR ---
CASE MANAGEMENT: REVIEW 08/08/19 SI:GI BLEED 98.0 67 17 125/59 98% ON RA IS:EGD TODAY IV NS @50ML/HR NICODERM TS QD IV PROTONIX BID LEXAPRO PO QD ZYPREXA PO BID \: 3E MED SURG UNIT DCP: SNF PLAN OF CARE: EGD W/ BIOPSY INTERQUAL MET
--- NOTE | 2019-08-08 13:00 | Procedure Note ---
DATE OF PROCEDURE: 08/08/2019 SURGEON: Vernon Salmeron MD. PROCEDURE: Upper endoscopy with biopsy. ANESTHESIA: Per Dr. Camara. INSTRUMENT: Olympus adult flexible upper endoscope. INDICATION: Upper GI bleeding. REASON FOR PROCEDURE: The procedure, risks, benefits, and possible consequences, including hemorrhage, aspiration, perforation and infection, and alternative treatments, were explained to the patient/legal guardian by Dr. Vernon Salmeron and the patient/legal guardian understood and accepted these risks. PROCEDURE IN DETAIL: After informed consent was obtained and the patient was adequately sedated, Olympus upper endoscope was advanced from mouth into the second portion of the duodenum and retroflexion was performed in the stomach. The patient had normal upper endoscopic examination except for mild gastritis in the antrum of the stomach, which was biopsied to rule out H. pylori infection. Otherwise, the rest of the upper endoscopy examination grossly looked within normal limits. The patient had no evidence of any esophageal varices, gastric varices, gastric ulcerations, or any other pathology. The patient tolerated the procedure very well without any complications. SUMMARY OF FINDINGS: Gastritis, otherwise normal upper endoscopic examination. RECOMMENDATIONS: 1. Resume diet. 2. DC Protonix. 3. Okay for discharge. 4. The patient most probably need outpatient followup for colonoscopy screening. Vernon Salmeron M.D. DR: LISA JOB#: [id number] CC:
--- NOTE | 2019-08-08 19:28 | NUR ---
HAND-OFF: Report given to Breanne RN. Patient is stable.
--- NOTE | 2019-08-08 19:30 | NUR ---
NURSE NOTES: RECEIVED PATIENT FROM GABRIEL BLANCHARD. PATIENT IS AWAKE, AAOX2, ON ROOM AIR, NO ACUTE DISTRESS NOTED. PATIENT DENIES PAIN, AND N/V. PIV INTACT AND PATENT, RUNNING NS @50ML/HR. BED IS LOCKED AND LOW, BED ALARMS ACTIVE, SIDE RAILS UPX2 AND CALL LIGHT IS WITHIN REACH. WILL CONTINUE TO MONITOR.
--- NOTE | 2019-08-08 20:16 | Cardiology Progress Note ---
Assessment/Plan Assessment/Plan 1. Hypotension, resolved. 2. s/p EGD, found to have gastritis. 3. History of major depression. 4. History of COPD. 5. History of GERD. 6. Hypoalbuminemia, possible mild malnutrition. Subjective Subjective Not on telemetry unit. No cardiac events noted. Objective Last 24 Hour Vital Signs Date Time Temp Pulse Resp B/P (MAP) Pulse Ox O2 Delivery O2 Flow Rate FiO2 08/08/19 15:38 97.7 63 20 119/62 (81) 97 08/08/19 11:55 97.6 70 19 118/61 (80) 98 08/08/19 10:48 59 125/71 (89) 95 08/08/19 10:27 57 18 100 08/08/19 10:26 57 18 100 08/08/19 10:15 98.0 67 17 125/59 98 Room Air 08/08/19 10:10 62 14 108/59 97 Room Air 08/08/19 10:05 98.4 57 14 104/65 98 Room Air 08/08/19 08:28 Room Air 08/08/19 08:00 98.1 71 21 114/68 (83) 97 08/08/19 00:00 97.9 65 16 103/57 (72) 95 08/07/19 21:00 Room Air Intake and Output 08/07/19 08/08/19 19:00 07:00 Intake Total 350 ml Balance 350 ml IV Total 350 ml Laboratory Tests Test 08/08/19 05:35 White Blood Count 8.0 K/UL (4.8-10.8) Red Blood Count 4.38 M/UL (4.20-5.40) Hemoglobin 13.4 G/DL (12.0-16.0) Hematocrit 42.8 % (37.0-47.0) Mean Corpuscular Volume 98 FL (80-99) Mean Corpuscular Hemoglobin 30.7 PG (27.0-31.0) Mean Corpuscular Hemoglobin Concent 31.4 G/DL (32.0-36.0) L Red Cell Distribution Width 12.5 % (11.6-14.8) Platelet Count 281 K/UL (150-450) Mean Platelet Volume 7.6 FL (6.5-10.1) Neutrophils (%) (Auto) 57.1 % (45.0-75.0) Lymphocytes (%) (Auto) 32.3 % (20.0-45.0) Monocytes (%) (Auto) 8.8 % (1.0-10.0) Eosinophils (%) (Auto) 1.0 % (0.0-3.0) Basophils (%) (Auto) 0.8 % (0.0-2.0) Sodium Level 144 MMOL/L (136-145) Potassium Level 3.9 MMOL/L (3.5-5.1) Chloride Level 109 MMOL/L (98-107) H Carbon Dioxide Level 28 MMOL/L (21-32) Anion Gap 8 mmol/L (5-15) Blood Urea Nitrogen 13 mg/dL (7-18) Creatinine 0.7 MG/DL (0.55-1.30) Estimat Glomerular Filtration Rate > 60 mL/min (>60) Glucose Level 91 MG/DL (74-106) Calcium Level 8.6 MG/DL (8.5-10.1) Microbiology Date/Time Source Procedure Growth Status 08/08/19 07:30 Nasopharynx SARS-CoV-2 RdRp Gene Assay - Final Complete Objective HEENT: Atraumatic and normocephalic. Anicteric. Pupils are equal, round, and reactive to light and accommodation. Extraocular muscles intact. NECK: JVP less than 5 cm. No carotid bruit. Carotid upstrokes 2+ bilaterally. CARDIOVASCULAR: Normal S1, S2. Regular rate and rhythm. No murmurs, gallops, or rubs. PMI is at fourth intercostal space in the midclavicular line. LUNGS: Clear to auscultation bilaterally. ABDOMEN: Soft, nontender, and nondistended. No hepatosplenomegaly. Positive bowel sounds. EXTREMITIES: No evidence of edema, clubbing, or cyanosis. Abel Mathews MD Aug 08, 2019 20:16
[2019-08-08] MEDS: TraZODone 50mg tab ORAL SCH (20:49)
--- NOTE | 2019-08-08 21:00 | NUR ---
NURSE NOTES: PATIENT REFUSED IV FLUID. REINFORCED TEACHING, STILL REFUSED.
--- NOTE | 2019-08-08 21:39 | General Progress Note ---
Assessment/Plan Problem List: (1) Upper gastrointestinal bleed ICD Codes: K92.2 - Gastrointestinal hemorrhage, unspecified SNOMED: [id number] Status: progressing Assessment/Plan: gi bleed gastritis check h/h moniter for gi bleeding Subjective ROS Limited/Unobtainable: Yes Allergies: Coded Allergies: No Known Allergies (Unverified , 08/05/19) Objective Last 24 Hour Vital Signs Date Time Temp Pulse Resp B/P (MAP) Pulse Ox O2 Delivery O2 Flow Rate FiO2 08/08/19 15:38 97.7 63 20 119/62 (81) 97 08/08/19 11:55 97.6 70 19 118/61 (80) 98 08/08/19 10:48 59 125/71 (89) 95 08/08/19 10:27 57 18 100 08/08/19 10:26 57 18 100 08/08/19 10:15 98.0 67 17 125/59 98 Room Air 08/08/19 10:10 62 14 108/59 97 Room Air 08/08/19 10:05 98.4 57 14 104/65 98 Room Air 08/08/19 08:28 Room Air 08/08/19 08:00 98.1 71 21 114/68 (83) 97 08/08/19 00:00 97.9 65 16 103/57 (72) 95 Intake and Output 08/07/19 08/08/19 19:00 07:00 Intake Total 350 ml Balance 350 ml IV Total 350 ml Laboratory Tests 08/08/19 05:35: White Blood Count 8.0, Red Blood Count 4.38, Hemoglobin 13.4, Hematocrit 42.8, Mean Corpuscular Volume 98, Mean Corpuscular Hemoglobin 30.7, Mean Corpuscular Hemoglobin Concent 31.4L, Red Cell Distribution Width 12.5, Platelet Count 281, Mean Platelet Volume 7.6, Neutrophils (%) (Auto) 57.1, Lymphocytes (%) (Auto) 32.3, Monocytes (%) (Auto) 8.8, Eosinophils (%) (Auto) 1.0, Basophils (%) (Auto ) 0.8, Sodium Level 144, Potassium Level 3.9, Chloride Level 109H, Carbon Dioxide Level 28, Anion Gap 8, Blood Urea Nitrogen 13, Creatinine 0.7, Estimat Glomerular Filtration Rate > 60, Glucose Level 91, Calcium Level 8.6 Height (Feet): 5 Height (Inches): 5.00 Weight (Pounds): 125 Jose C Holley MD Aug 08, 2019 21:39
--- NOTE | 2019-08-08 22:40 | Nephrology Progress Note ---
Assessment/Plan Assessment 1. Dehydration. 2. Possible GI bleeding. 3. Hypotension. Plan continue current iv monitoring renal function closely avoid NSAID replace electrolyte as need it Subjective ROS Limited/Unobtainable: Yes Objective Objective Last 24 Hour Vital Signs Date Time Temp Pulse Resp B/P (MAP) Pulse Ox O2 Delivery O2 Flow Rate FiO2 08/08/19 15:38 97.7 63 20 119/62 (81) 97 08/08/19 11:55 97.6 70 19 118/61 (80) 98 08/08/19 10:48 59 125/71 (89) 95 08/08/19 10:27 57 18 100 08/08/19 10:26 57 18 100 08/08/19 10:15 98.0 67 17 125/59 98 Room Air 08/08/19 10:10 62 14 108/59 97 Room Air 08/08/19 10:05 98.4 57 14 104/65 98 Room Air 08/08/19 08:28 Room Air 08/08/19 08:00 98.1 71 21 114/68 (83) 97 08/08/19 00:00 97.9 65 16 103/57 (72) 95 Intake and Output 08/07/19 08/08/19 19:00 07:00 Intake Total 350 ml Balance 350 ml IV Total 350 ml Laboratory Tests 08/08/19 05:35: White Blood Count 8.0, Red Blood Count 4.38, Hemoglobin 13.4, Hematocrit 42.8, Mean Corpuscular Volume 98, Mean Corpuscular Hemoglobin 30.7, Mean Corpuscular Hemoglobin Concent 31.4L, Red Cell Distribution Width 12.5, Platelet Count 281, Mean Platelet Volume 7.6, Neutrophils (%) (Auto) 57.1, Lymphocytes (%) (Auto) 32.3, Monocytes (%) (Auto) 8.8, Eosinophils (%) (Auto) 1.0, Basophils (%) (Auto ) 0.8, Sodium Level 144, Potassium Level 3.9, Chloride Level 109H, Carbon Dioxide Level 28, Anion Gap 8, Blood Urea Nitrogen 13, Creatinine 0.7, Estimat Glomerular Filtration Rate > 60, Glucose Level 91, Calcium Level 8.6 Height (Feet): 5 Height (Inches): 5.00 Weight (Pounds): 125 Objective HEAD AND NECK: No JVP. No LAD. No thyromegaly. Extraocular movement intact. Pupils are reactive to light and accommodation. LUNGS: Clear to auscultation. CARDIAC: Regular rate and rhythm. S1-S2. No murmur. No rub. ABDOMEN: Soft, nontender, and nondistended. No organomegaly. EXTREMITIES: No edema. No clubbing. No cyanosis. Digna Walker MD Aug 08, 2019 22:40
[2019-08-09] VITALS: BP 100/56
[2019-08-09 04:00] VITALS: BP 131/64
--- NOTE | 2019-08-09 07:30 | NUR ---
HAND-OFF: Report given to GABRIEL Mcfadden.
--- NOTE | 2019-08-09 07:35 | NUR ---
NURSE NOTES: Patient is in bed asleep. Stable. Breathing is even and unlabored. No visible signs of distress. Patient is in bed in locked and lowest position with call light within reach. All safety measures provided. Will continue to monitor.
[2019-08-09 08:00] VITALS: BP 107/66
[2019-08-09] MEDS: Pantoprazole Inj IVP SCH (08:23)
--- NOTE | 2019-08-09 08:43 | General Progress Note ---
Assessment/Plan Status: progressing Assessment/Plan: 1. History of COPD. 2. Schizophrenia. 3. Depression 4, coffee colored emesis stable H&H on ppi s/p EGD ok for dc GI stand point Subjective ROS Limited/Unobtainable: No Allergies: Coded Allergies: No Known Allergies (Unverified , 08/05/19) Objective Last 24 Hour Vital Signs Date Time Temp Pulse Resp B/P (MAP) Pulse Ox O2 Delivery O2 Flow Rate FiO2 08/09/19 08:13 Room Air 08/09/19 08:00 99.0 78 18 107/66 (80) 97 08/09/19 04:00 97.6 55 19 131/64 (86) 96 08/09/19 00:00 97.6 56 19 100/56 (71) 97 08/08/19 21:00 Room Air 08/08/19 20:00 97.4 65 20 122/67 (85) 95 08/08/19 15:38 97.7 63 20 119/62 (81) 97 08/08/19 11:55 97.6 70 19 118/61 (80) 98 08/08/19 10:48 59 125/71 (89) 95 08/08/19 10:27 57 18 100 08/08/19 10:26 57 18 100 08/08/19 10:15 98.0 67 17 125/59 98 Room Air 08/08/19 10:10 62 14 108/59 97 Room Air 08/08/19 10:05 98.4 57 14 104/65 98 Room Air Intake and Output 08/08/19 08/09/19 19:00 07:00 Intake Total 705 ml 50 ml Output Total 0 ml Balance 705 ml 50 ml Intake Oral 480 ml IV Total 225 ml 50 ml Output Estimated Blood Loss 0 ml Height (Feet): 5 Height (Inches): 5.00 Weight (Pounds): 125 General Appearance: no apparent distress EENT: normal ENT inspection Neck: supple Cardiovascular: normal rate Respiratory/Chest: decreased breath sounds Abdomen: normal bowel sounds, non tender, soft Extremities: non-tender Vernon Salmeron MD Aug 09, 2019 08:43
--- NOTE | 2019-08-09 10:45 | Progress Note ---
DATE: 08/09/2019 SUBJECTIVE: This is a 59-year-old female patient. She is still very depressed and confused. She is mood labile. She has got no plans for her own self-care. That is why, she does require acute psychiatric inpatient treatment at this time. She is in the hospital because of upper GI bleeding, but she has got altered mental status, confusion, and decline in cognition below her baseline. That is why, her attending has requested daily psychiatric consultation. MENTAL STATUS EXAMINATION: This is a 59-year-old female patient. Appearance is disheveled. Attitude, irritable and agitated. Affect, guarded and restricted. Intellect, poor. Mood, depressed and anxious. Motor activity, psychomotor agitation. Attention span is poor. Orientation x2. Speech is low volume, slurred. Thought process, disorganized and illogical. Insight and judgment is poor. DIAGNOSIS: Paranoid schizophrenia with acute exacerbation, rule out depression with psychotic features. PLAN: Risperdal mg twice a day, trazodone 50 mg nightly, Zyprexa 5 mg twice a day, Ativan 1 mg every 6 hours p.r.n. anxiety and agitation. Also treated with Lexapro 10 mg daily. A 20 minutes of cognitive behavioral therapy was provided to help her identify her automatic negative thoughts and help her convert negative thoughts to more positive thoughts to reduce depression, anxiety, and mood lability. Chart reviewed. Discussed with staff. Ioana Kennedy M.D. DR: CHUYITA JOB#: [id number] CC:
[2019-08-09 12:01] VITALS: BP 123/76
--- NOTE | 2019-08-09 12:21 | NUR ---
NURSE NOTES: RN spoke to trimming caser about discharge to SNF. Awaiting return call from SNF for bed availability. RN notified next of kin/conservator Priti Darell regarding discharge.
--- NOTE | 2019-08-09 13:15 | NUR ---
*-*DISCHARGE PLANNED*-* PATIENT HAS BEEN ACCEPTED AND WILL BE DISCHARGED BACK TO: [facility] P: [phone] FOR NURSE TO NURSE REPORT ROOM# 303.[facility] SET FOR 3PM S/W STAS [id number] S/W PATIENTS SISTER, GALILEO ESPINOZA, WHO IS IN AGREEMENT WITH DISCHARGE PLAN. Addendum: 08/09/19 at 1339 by ALLISON WALSH CM *-*DISCHARGE PLANNED*-* PATIENT HAS BEEN ACCEPTED AND WILL BE DISCHARGED BACK TO: [facility] P: [phone] FOR NURSE TO NURSE REPORT ROOM# 303.[facility] SET FOR 3PM S/W STAS X8888 S/W PATIENTS SISTER, GALILEO ESPINOZA, WHO IS IN AGREEMENT WITH DISCHARGE PLAN.
--- NOTE | 2019-08-09 13:49 | NUR ---
NURSE NOTES: Attempted to give report x2, awaiting return call from RN spring production supervisor Crystal.
--- NOTE | 2019-08-09 14:53 | NUR ---
NURSE NOTES: Report given to Crystal RIOS at [facility].
[2019-08-09 15:51] VITALS: BP 102/66
--- NOTE | 2019-08-09 16:11 | NUR ---
NURSE NOTES: Patient discharged to [facility] as ordered. All discharge paperwork and transfer report sent with patient.Skin is c/d/i. No iV access. Patient is stable. Breathing is even and unlabored. No visible signs of distress noted. VSS. Patient assisted onto [facility] wert by Jerardo CROCKER of [facility]. all belongings with patient.
--- NOTE | 2019-08-11 08:03 | Discharge Summary ---
Discharge Summary Discharge Summary _ DATE OF ADMISSION: 08/05/2019 DATE OF DISCHARGE: 08/09/2019 DISCHARGED BY: Dr. Muñoz REASON FOR ADMISSION: 59 years old female, with past medical history of COPD, GERD, schizophrenia, depression, [facility], presented for evaluation of coffee-ground emesis earlier that morning. Patient denied abdominal pain or nausea. Patient reported no difficulty with bowel movement. She denied melena or hematochezia. Chest x-ray was suggestive of COPD , no infiltrates. Laboratory work-up revealed stable hemoglobin and hematocrit. Stable electrolytes , LFT and lipase. Urinalysis revealed no evidence of UTI. Troponin negative. EKG revealed sinus rhythm no acute ischemic changes No further vomiting in ED. In emergency department patient received liter of fluid, Pepcid, Zofran and admitted for further management. CONSULTANTS: wind projects supervisor Dr. Mathews GI specialist Dr. Salmeron molder closed molds Dr. Walker psychiatrist Dr. Kennedy [facility] COURSE: Patient made to medical surgical floor. Patient admitted to medical surgical floor. CT scan of the abdomen and pelvis revealed no signs of acute abdomino-pelvic pathology. Mild to moderate increased stool lucency in the colon. Small renal cyst. Hemoglobin and hematocrit remained stable. Patient started on Protonix. Patient subsequently undergone upper endoscopy with biopsy on 08/07, which revealed gastritis , otherwise normal upper endoscopy. Diet started and was advanced as tolerated. Pathology of gastric antrum revealed active chronic H. pylori gastritis. No intestinal metaplasia, dysplasia or malignancy identified. Treatment for H. pylori will be initiated at the facility Renal parameters and electrolytes were closely monitored. Electrolytes corrected as needed. Nephrotoxic's were avoided. Creatinine remained stable Patient noted to be hypotensive on the second day on admission. Blood pressure responded to IV boluses. Frame Table Operator Helper followed. Hypotension resolved. Psychiatric medications were optimized as per psychiatrist. Cognitive behavioral therapy provided. Patient clinically stabilized: remained hemodynamically stable, tolerated diet , no further episodes of emesis. Patient was [facility] for [facility] of care. Patient will be treated for H. pylori infection at the facility. FINAL DIAGNOSES: Coffee-ground emesis Possible GI bleeding Status post EGD H. pylori gastritis Hypotension History of COPD GERD Paranoid schizophrenia with acute exacerbation DISCHARGE MEDICATIONS: See Medication Reconciliation list. DISCHARGE INSTRUCTIONS: Patient was discharged to the [facility]. Follow up with medical doctor at the facility. I have been assigned to dictate discharge summary for this account. I was not involved in the patient's management. Jennie Merritt NP Aug 11, 2019 08:03
== END 2019-08-09 16:40 | DRG 378 ==
LOC: EDBD 13:28 → EMR 14:06 → 3E 14:08 → EDBEDREQ 15:32 → 3E 16:17
PROC: 0DB78ZX Excision of Stomach, Pylorus, Via Natural or Artificial Opening Endoscopic, Diagnostic (ICD-10-PCS; principal; 2019-08-08 09:51)
DX: K29.61 Other gastritis with bleeding (principal); F20.0 Paranoid schizophrenia; F33.3 Major depressive disorder, recurrent, severe with psychotic symptoms; B96.81 Helicobacter pylori [H. pylori] as the cause of diseases classified elsewhere; F29 Unspecified psychosis not due to a substance or known physiological condition; I95.9 Hypotension, unspecified; E88.09 Other disorders of plasma-protein metabolism, not elsewhere classified; E86.0 Dehydration; K21.9 Gastro-esophageal reflux disease without esophagitis
CPT/HCPCS: 36415; 71045; 74177; 80048; 80053; 81003; 83605; 83690; 84484; 85025; 85610; 85730; 86850; 86900; 86901; 93005; 94003; 94150; 96361; 96374; 96375; 99285; J2405; J7030; U0002